=== PATIENT | male | born 1960 | race Caucasian/White ===

== ENCOUNTER 2023-02-24 17:48 | Inpatient (IN) ==
--- NOTE | 2023-02-24 18:55 | Emergency Department Note ---
Impression & Plan Acute hypotension, Fever, Malaise, Sepsis ED Provider Note INFORMANT: Patient and ED PROVIDER(S): Paulo Mosley MD CHIEF COMPLAINT: Illness PLAN: Disposition: Admitted Condition: Good Outpatient prescription management: none Referral: None MEDICAL DECISION MAKING: Patient presented because of illness. He was hypotensive. Sepsis work-up was initiated. The patient was aggressively hydrated. His hypotension resolved. Patient CBC and chemistry panel was unremarkable except for mild thrombocytopenia. Lyme testing as well as anaplasmosis testing by smear was n egative. I did have concerns that this may be tickborne related even though the initial smear is negative. DNA of reference testing sent. He did have blood cultures performed. Patient was treated with doxycycline and Rocephin empirically. Sepsis is also a possibility and he was treated with the appropriate fluid volume based upon his ideal body weight. I discussed further management in the hospital. Patient was in agreement. Consultation was made with Dr. Damon Wilson, [facility]. Patient was evaluated in the ER admitted for further management. Discussed with technical manager chemical plant After review of the information above and other included data, I feel the patient requires admission. Triage Nursing notes reviewed and agree them. Vital Signs: reviewed and remarkable for hypotension Prior /Outside records reviewed: none Differential diagnosis: Sepsis, UTI, pneumonia, metabolic, electrolyte abnormalities, cardiac sources, intracerebral event, toxicologic, neurologic, as well as other pathologies. Diagnostics, as interpreted by me: ECG: Twelve-lead ECG reveals a left anterior fascicular block and normal sinus rhythm at [address] elevation or depression. No PACs or PVCs. Cardiac Monitoring: Cardiac monitoring ordered by me: The patient was placed on continuous cardiac monitoring and observed. It revealed a normal sinus rhythm at 68 beats per minute without ectopy or evidence of dysrhythmia. Medical decision rules: none Imaging studies: Chest x-ray. Findings: A chest x-ray was performed and revealed no pneumothorax, effusion, infiltrate, pulmonary edema, free air under the diaphragm, or wide mediastinum. Impression: No acute disease. HPI: The patient is a 62 year old male who presents to the Emergency Room with complaints of illness. This started last night and is worsening. The patient also notes the following associated symptoms, chills, fevers, cough, sweats, near syncope. The patient has tylenol relieving factors. Current pain is rated as 0/10. No travel or bites. No sick contacts. Pt denies LOC, headache, , visual changes, neck pain, chest pain, breathing difficulties, nausea, vomiting, abdominal pain, back pain, melena, hematochezia, urinary symptoms, numbness, lymphadenopathy, rash, or other complaints. PAST MEDICAL HISTORY: See Below, seasonal allergies, high cholesterol PAST SURGICAL HISTORY: See Below, appendix SOCIAL HISTORY: See Below, HOME MEDICATIONS: See Below ALLERGIES: See Below VITALS: See Below PHYSICAL EXAMINATION: GENERAL: Awake, tired-appearing, in no distress HENT: Normocephalic, atraumatic. Oropharynx unremarkable. EYES: Normal conjunctiva. Sclera non-icteric. NECK: Inspection normal. Non-tender. Supple. No nuchal rigidity. FROM. No masses. RESPIRATORY: Clear to auscultation. No wheezes. No rales. Normal respiratory effort. CARDIAC: Normal rate. Normal rhythm. No murmurs. No rubs. Extremities warm and well perfused. Pulses equal. No JVD. GI: Soft, non-distended. No tenderness to palpation. No rebound or guarding. No masses. RECTAL: Deferred. MUSCULOSKELETAL: Atraumatic. Chest examination reveals no tenderness. The back is symmetrical on inspection without obvious abnormality. There is no CVA tenderness to palpation. No joint edema. LOWER EXTREMITIES: Calves are equal size bilaterally and non-tender. No edema. No discoloration. NEURO: Normal sensorium. No sensory or motor deficits noted. SKIN: No rash or jaundice noted. Past Med/Surg History Social History Smoking Status: Never smoker Hx Substance Use: No Preferred Language: Moh[place] Beliefs That Will Affect Care: None Current Living Situation: Spouse Other Information That Helps Us Care for You: No Feels Safe at Home: Yes Safety Concerns: Feels Safe At This Time Allergies Allergies Allergy/AdvReac Type Severity Reaction Status Date / Time No Known Allergies Allergy Unverified 02/24/23 23:30 Home Meds Home Medications Medication Instructions Recorded Confirmed fexofenadine 180 mg tablet 180 mg PO DAILY 08/27/22 02/24/23 levothyroxine 175 mcg tablet 175 mcg PO DAILY 08/27/22 02/24/23 acetaminophen 325 mg tablet 650 mg PO QID PRN Pain 02/24/23 02/24/23 (Tylenol) albuterol sulfate 90 mcg/actuation 2 puff inhalation QID PRN 02/24/23 02/24/23 aerosol inhaler Shortness Of Breath Or Wheezing atorvastatin 20 mg tablet 20 mg PO QAM 02/24/23 02/24/23 cyanocobalamin (vitamin B-12) 1,000 mcg PO DAILY 02/24/23 02/24/23 1,000 mcg tablet (Vitamin B-12) ipratropium bromide 0.02 % 0 mg inhalation BID PRN allergies 02/24/23 02/24/23 solution for inhalation Results & Data (ED) Vital Signs Vital Signs - 24 hr 02/25/23 03:12 02/25/23 03:13 02/25/23 05:00 Temperature 38.7 C H 37.2 C Temperature Source Oral Oral Pulse Rate Pulse Rate [Finger] 94 H Pulse Rhythm [Finger] Pulse Strength [Finger] Respiratory Rate 18 Respiratory Effort / Characteristics Respiratory Depth Respiratory Pattern Blood Pressure [Right Arm] 130/84 Blood Pressure Mean [Right Arm] 99 Blood Pressure Position [Right Arm] Pulse Oximetry 95 Oxygen Delivery Method Room Air EWS Level of Consciousness - Last Result Spontaneously Alert EWS Temperature - Last Result 38.7 EWS Respiratory Rate - Last Result 18 EWS Oxygen Saturation - Last Result 95 EWS Oxygen in Use - Last Result No EWS Lactate - Last Result 1.1 EWS Score 3 EWS Clinical Risk Moderate Risk 02/25/23 05:16 02/25/23 07:47 02/25/23 07:50 Temperature 37.4 C Temperature Source Oral Pulse Rate Pulse Rate [Finger] 82 Pulse Rhythm [Finger] Regular Pulse Strength [Finger] Normal Respiratory Rate 18 Respiratory Effort / Characteristics Non-Labored Spontaneous Respiratory Depth Normal Respiratory Pattern Regular Blood Pressure [Right Arm] 130/78 Blood Pressure Mean [Right Arm] 95 Blood Pressure Position [Right Arm] Lying Pulse Oximetry 94 Oxygen Delivery Method Room Air EWS Level of Consciousness - Last Result Spontaneously Alert Spontaneously Alert EWS Temperature - Last Result 37.2 37.4 EWS Respiratory Rate - Last Result 18 18 EWS Oxygen Saturation - Last Result 95 94 EWS Oxygen in Use - Last Result No No EWS Lactate - Last Result 1.1 1.1 EWS Score 2 1 EWS Clinical Risk Low Risk Low Risk 02/25/23 09:14 02/25/23 12:54 06/24/23 14:36 Temperature 37.7 C H 37.4 C Temperature Source Oral Oral Pulse Rate 79 Pulse Rate [Finger] 83 82 Pulse Rhythm [Finger] Regular Pulse Strength [Finger] Normal Respiratory Rate 18 17 Respiratory Effort / Characteristics Non-Labored Spontaneous Non-Labored Respiratory Depth Normal Normal Respiratory Pattern Regular Blood Pressure [Right Arm] 135/80 138/79 Blood Pressure Mean [Right Arm] 98 98 Blood Pressure Position [Right Arm] Lying Pulse Oximetry 97 94 Oxygen Delivery Method Room Air Room Air EWS Level of Consciousness - Last Result EWS Temperature - Last Result EWS Respiratory Rate - Last Result EWS Oxygen Saturation - Last Result EWS Oxygen in Use - Last Result EWS Lactate - Last Result EWS Score EWS Clinical Risk Laboratory Data 02/25/23 06:01 02/25/23 06:01 Lab Results 02/24/23 02/24/23 02/24/23 Range/Units 18:20 18:20 18:20 WBC 7.10 (4.8-10.8) K/ul RBC 4.98 (4.70-6.10) M/uL Hgb 15.5 (14.0-18.0) g/dl Hct 44.2 (42.0-52.0) % MCV 88.8 (80.0-100.0) fL MCH 31.1 (25.0-34.0) pg MCHC 35.1 (32.0-36.0) g/dL RDW Std Deviation 44.6 (36.4-46.3) fL RDW Coeff of Xin 13.7 (11.5-14.5) % Plt Count 129 L (130-400) K/uL MPV 10.2 (9.4-12.4) fL Immature Gran % (Auto) 0.4 % Neut % (Auto) 85.1 % Lymph % (Auto) 11.8 % [place] % (Auto) 2.3 % Eos % (Auto) 0.0 % Baso % (Auto) 0.4 % Neut # (Auto) 6.04 (1.40-6.50) K/uL Lymph # (Auto) 0.84 L (1.2-3.4) K/uL [place] # (Auto) 0.16 (0.11-0.59) K/uL Eos # (Auto) 0.00 (0-0.50) K/uL Baso # (Auto) 0.03 (0-0.2) K/uL Immature Gran # (Auto) 0.03 (0.01-0.20) K/uL Platelet Estimate (Normal) Sodium 135 L (136-145) mmol/L Potassium 3.7 (3.5-5.1) mmol/L Chloride 102 (98-107) mmol/L Carbon Dioxide 23 (21-32) mmol/L Anion Gap 10 (3-11) BUN 23 (6-23) mg/dl Creatinine 1.15 (0.6-1.4) mg/dl Est Cr Clr Drug Dosing 88.7 ml/min Est GFR ( Amer) 78.6 ml/min Est GFR (Non-Af Amer) 67.8 ml/min BUN/Creatinine Ratio 20.0 (10-20) Glucose 139 H (70-99(Fasting)) mg/dl Estimat Average Glucose mg/dl Hemoglobin A1c (4.5-5.6) % Lactate (0.4-2.0) mmol/L Calcium 8.9 (8.6-10.3) mg/dl Magnesium 1.7 (1.7-2.4) mg/dl Total Bilirubin 0.7 (0.2-1.0) mg/dl Direct Bilirubin 0.1 (0-0.2) mg/dl AST 20 (13-39) U/L ALT 17 (7-52) U/L Alkaline Phosphatase 43 (34-104) U/L Troponin I High Sens 19.0 (0-20) pg/ml Total Protein 6.9 (6.0-8.3) gm/dl Albumin 3.9 (3.4-5.0) gm/dl Procalcitonin 0.36 (0-0.5) ng/ml Urine Color Urine Appearance (Clear) Urine pH (4.5-7.5) Ur Specific [place] (1.000-1.030) Urine Protein (Negative) Urine Glucose (UA) (Negative) Urine Ketones (Negative) Urine Blood (Negative) Urine Nitrite (Negative) Urine Bilirubin (Negative) Urine Urobilinogen (Negative) Ur Leukocyte Esterase (Negative) Adenovirus (PCR) (NotDetected) Anaplasma Smear Babesia Smear B. pertussis DNA (PCR) (NotDetected) B.parapertussis DNA PCR (NotDetected) Lyme Disease IgG Ab Negative (Negative) Lyme Disease IgM Ab Negative (Negative) C. pneumoniae DNA (PCR) (NotDetected) Coronavirus OC43 (PCR) (NotDetected) Coronavirus HKU1 (PCR) (NotDetected) Coronavirus 229E (PCR) (NotDetected) SARS-CoV-2 (PCR) (NotDetected) Coronavirus NL63 (PCR) (NotDetected) Human Metapneumovir PCR (NotDetected) Influenza Type A (PCR) (NotDetected) Influenza Type B (PCR) (NotDetected) M. pneumoniae (PCR) (NotDetected) Parainfluenza 1 (PCR) (NotDetected) Parainfluenza 2 (PCR) (NotDetected) Parainfluenza 3 (PCR) (NotDetected) Parainfluenza 4 (PCR) (NotDetected) RSV (PCR) (NotDetected) Entero/Rhino (PCR) (NotDetected) 02/24/23 02/24/23 02/24/23 Range/Units 18:20 18:20 19:04 WBC (4.8-10.8) K/ul RBC (4.70-6.10) M/uL Hgb (14.0-18.0) g/dl Hct (42.0-52.0) % MCV (80.0-100.0) fL MCH (25.0-34.0) pg MCHC (32.0-36.0) g/dL RDW Std Deviation (36.4-46.3) fL RDW Coeff of Xin (11.5-14.5) % Plt Count (130-400) K/uL MPV (9.4-12.4) fL Immature Gran % (Auto) % Neut % (Auto) % Lymph % (Auto) % [place] % (Auto) % Eos % (Auto) % Baso % (Auto) % Neut # (Auto) (1.40-6.50) K/uL Lymph # (Auto) (1.2-3.4) K/uL [place] # (Auto) (0.11-0.59) K/uL Eos # (Auto) (0-0.50) K/uL Baso # (Auto) (0-0.2) K/uL Immature Gran # (Auto) (0.01-0.20) K/uL Platelet Estimate (Normal) Sodium (136-145) mmol/L Potassium (3.5-5.1) mmol/L Chloride (98-107) mmol/L Carbon Dioxide (21-32) mmol/L Anion Gap (3-11) BUN (6-23) mg/dl Creatinine (0.6-1.4) mg/dl Est Cr Clr Drug Dosing ml/min Est GFR ( Amer) ml/min Est GFR (Non-Af Amer) ml/min BUN/Creatinine Ratio (10-20) Glucose (70-99(Fasting)) mg/dl Estimat Average Glucose 128 mg/dl Hemoglobin A1c 6.1 H (4.5-5.6) % Lactate (0.4-2.0) mmol/L Calcium (8.6-10.3) mg/dl Magnesium (1.7-2.4) mg/dl Total Bilirubin (0.2-1.0) mg/dl Direct Bilirubin (0-0.2) mg/dl AST (13-39) U/L ALT (7-52) U/L Alkaline Phosphatase (34-104) U/L Troponin I High Sens (0-20) pg/ml Total Protein (6.0-8.3) gm/dl Albumin (3.4-5.0) gm/dl Procalcitonin (0-0.5) ng/ml Urine Color Urine Appearance (Clear) Urine pH (4.5-7.5) Ur Specific [place] (1.000-1.030) Urine Protein (Negative) Urine Glucose (UA) (Negative) Urine Ketones (Negative) Urine Blood (Negative) Urine Nitrite (Negative) Urine Bilirubin (Negative) Urine Urobilinogen (Negative) Ur Leukocyte Esterase (Negative) Adenovirus (PCR) Not Detected (NotDetected) Anaplasma Smear See Comment Babesia Smear See Comment B. pertussis DNA (PCR) Not Detected (NotDetected) B.parapertussis DNA PCR Not Detected (NotDetected) Lyme Disease IgG Ab (Negative) Lyme Disease IgM Ab (Negative) C. pneumoniae DNA (PCR) Not Detected (NotDetected) Coronavirus OC43 (PCR) Not Detected (NotDetected) Coronavirus HKU1 (PCR) Not Detected (NotDetected) Coronavirus 229E (PCR) Not Detected (NotDetected) SARS-CoV-2 (PCR) Not Detected (NotDetected) Coronavirus NL63 (PCR) Not Detected (NotDetected) Human Metapneumovir PCR Not Detected (NotDetected) Influenza Type A (PCR) Not Detected (NotDetected) Influenza Type B (PCR) Not Detected (NotDetected) M. pneumoniae (PCR) Not Detected (NotDetected) Parainfluenza 1 (PCR) Not Detected (NotDetected) Parainfluenza 2 (PCR) Not Detected (NotDetected) Parainfluenza 3 (PCR) Not Detected (NotDetected) Parainfluenza 4 (PCR) Not Detected (NotDetected) RSV (PCR) Not Detected (NotDetected) Entero/Rhino (PCR) Not Detected (NotDetected) 02/24/23 02/24/23 02/25/23 Range/Units 19:11 22:00 06:01 WBC 5.32 (4.8-10.8) K/ul RBC 4.37 L (4.70-6.10) M/uL Hgb 13.6 L (14.0-18.0) g/dl Hct 39.4 L (42.0-52.0) % MCV 90.2 (80.0-100.0) fL MCH 31.1 (25.0-34.0) pg MCHC 34.5 (32.0-36.0) g/dL RDW Std Deviation 46.0 (36.4-46.3) fL RDW Coeff of Xin 13.8 (11.5-14.5) % Plt Count 93 L (130-400) K/uL MPV 10.1 (9.4-12.4) fL Immature Gran % (Auto) 0.6 % Neut % (Auto) 71.5 % Lymph % (Auto) 23.7 % [place] % (Auto) 3.8 % Eos % (Auto) 0.0 % Baso % (Auto) 0.4 % Neut # (Auto) 3.81 (1.40-6.50) K/uL Lymph # (Auto) 1.26 (1.2-3.4) K/uL [place] # (Auto) 0.20 (0.11-0.59) K/uL Eos # (Auto) 0.00 (0-0.50) K/uL Baso # (Auto) 0.02 (0-0.2) K/uL Immature Gran # (Auto) 0.03 (0.01-0.20) K/uL Platelet Estimate Decreased L (Normal) Sodium (136-145) mmol/L Potassium (3.5-5.1) mmol/L Chloride (98-107) mmol/L Carbon Dioxide (21-32) mmol/L Anion Gap (3-11) BUN (6-23) mg/dl Creatinine (0.6-1.4) mg/dl Est Cr Clr Drug Dosing ml/min Est GFR ( Amer) ml/min Est GFR (Non-Af Amer) ml/min BUN/Creatinine Ratio (10-20) Glucose (70-99(Fasting)) mg/dl Estimat Average Glucose mg/dl Hemoglobin A1c (4.5-5.6) % Lactate 1.1 (0.4-2.0) mmol/L Calcium (8.6-10.3) mg/dl Magnesium (1.7-2.4) mg/dl Total Bilirubin (0.2-1.0) mg/dl Direct Bilirubin (0-0.2) mg/dl AST (13-39) U/L ALT (7-52) U/L Alkaline Phosphatase (34-104) U/L Troponin I High Sens (0-20) pg/ml Total Protein (6.0-8.3) gm/dl Albumin (3.4-5.0) gm/dl Procalcitonin (0-0.5) ng/ml Urine Color Yellow Urine Appearance Clear (Clear) Urine pH 7.0 (4.5-7.5) Ur Specific [place] 1.020 (1.000-1.030) Urine Protein Negative (Negative) Urine Glucose (UA) Negative (Negative) Urine Ketones Negative (Negative) Urine Blood Negative (Negative) Urine Nitrite Negative (Negative) Urine Bilirubin Negative (Negative) Urine Urobilinogen Negative (Negative) Ur Leukocyte Esterase Negative (Negative) Adenovirus (PCR) (NotDetected) Anaplasma Smear Babesia Smear B. pertussis DNA (PCR) (NotDetected) B.parapertussis DNA PCR (NotDetected) Lyme Disease IgG Ab (Negative) Lyme Disease IgM Ab (Negative) C. pneumoniae DNA (PCR) (NotDetected) Coronavirus OC43 (PCR) (NotDetected) Coronavirus HKU1 (PCR) (NotDetected) Coronavirus 229E (PCR) (NotDetected) SARS-CoV-2 (PCR) (NotDetected) Coronavirus NL63 (PCR) (NotDetected) Human Metapneumovir PCR (NotDetected) Influenza Type A (PCR) (NotDetected) Influenza Type B (PCR) (NotDetected) M. pneumoniae (PCR) (NotDetected) Parainfluenza 1 (PCR) (NotDetected) Parainfluenza 2 (PCR) (NotDetected) Parainfluenza 3 (PCR) (NotDetected) Parainfluenza 4 (PCR) (NotDetected) RSV (PCR) (NotDetected) Entero/Rhino (PCR) (NotDetected) 02/25/23 Range/Units 06:01 WBC (4.8-10.8) K/ul RBC (4.70-6.10) M/uL Hgb (14.0-18.0) g/dl Hct (42.0-52.0) % MCV (80.0-100.0) fL MCH (25.0-34.0) pg MCHC (32.0-36.0) g/dL RDW Std Deviation (36.4-46.3) fL RDW Coeff of Xin (11.5-14.5) % Plt Count (130-400) K/uL MPV (9.4-12.4) fL Immature Gran % (Auto) % Neut % (Auto) % Lymph % (Auto) % [place] % (Auto) % Eos % (Auto) % Baso % (Auto) % Neut # (Auto) (1.40-6.50) K/uL Lymph # (Auto) (1.2-3.4) K/uL [place] # (Auto) (0.11-0.59) K/uL Eos # (Auto) (0-0.50) K/uL Baso # (Auto) (0-0.2) K/uL Immature Gran # (Auto) (0.01-0.20) K/uL Platelet Estimate (Normal) Sodium 135 L (136-145) mmol/L Potassium 3.6 (3.5-5.1) mmol/L Chloride 105 (98-107) mmol/L Carbon Dioxide 23 (21-32) mmol/L Anion Gap 7 (3-11) BUN 21 (6-23) mg/dl Creatinine 1.10 (0.6-1.4) mg/dl Est Cr Clr Drug Dosing 93.4 ml/min Est GFR ( Amer) 82.9 ml/min Est GFR (Non-Af Amer) 71.6 ml/min BUN/Creatinine Ratio 19.1 (10-20) Glucose 112 H (70-99(Fasting)) mg/dl Estimat Average Glucose mg/dl Hemoglobin A1c (4.5-5.6) % Lactate (0.4-2.0) mmol/L Calcium 8.1 L (8.6-10.3) mg/dl Magnesium (1.7-2.4) mg/dl Total Bilirubin (0.2-1.0) mg/dl Direct Bilirubin (0-0.2) mg/dl AST (13-39) U/L ALT (7-52) U/L Alkaline Phosphatase (34-104) U/L Troponin I High Sens (0-20) pg/ml Total Protein (6.0-8.3) gm/dl Albumin (3.4-5.0) gm/dl Procalcitonin (0-0.5) ng/ml Urine Color Urine Appearance (Clear) Urine pH (4.5-7.5) Ur Specific [place] (1.000-1.030) Urine Protein (Negative) Urine Glucose (UA) (Negative) Urine Ketones (Negative) Urine Blood (Negative) Urine Nitrite (Negative) Urine Bilirubin (Negative) Urine Urobilinogen (Negative) Ur Leukocyte Esterase (Negative) Adenovirus (PCR) (NotDetected) Anaplasma Smear Babesia Smear B. pertussis DNA (PCR) (NotDetected) B.parapertussis DNA PCR (NotDetected) Lyme Disease IgG Ab (Negative) Lyme Disease IgM Ab (Negative) C. pneumoniae DNA (PCR) (NotDetected) Coronavirus OC43 (PCR) (NotDetected) Coronavirus HKU1 (PCR) (NotDetected) Coronavirus 229E (PCR) (NotDetected) SARS-CoV-2 (PCR) (NotDetected) Coronavirus NL63 (PCR) (NotDetected) Human Metapneumovir PCR (NotDetected) Influenza Type A (PCR) (NotDetected) Influenza Type B (PCR) (NotDetected) M. pneumoniae (PCR) (NotDetected) Parainfluenza 1 (PCR) (NotDetected) Parainfluenza 2 (PCR) (NotDetected) Parainfluenza 3 (PCR) (NotDetected) Parainfluenza 4 (PCR) (NotDetected) RSV (PCR) (NotDetected) Entero/Rhino (PCR) (NotDetected) Administered Medications Acetaminophen (Acetaminophen 325 Mg Tab) 650 mg PO Q4H PRN PRN Reason: Pain or Fever Stop: 03/27/23 01:40 Last Admin: 02/25/23 14:40 Dose: 650 mg Documented By: Admin: 02/25/23 01:54 Dose: 650 mg Documented By: MONO Atorvastatin Calcium (Atorvastatin 20 Mg Tab) 20 mg PO QAM [facility] Stop: 03/27/23 08:59 Last Admin: 02/25/23 08:07 Dose: 20 mg Documented By: TRACEY Cyanocobalamin (Cyanocobalamin (B-12) 500 Mcg Tablet) 1,000 mcg PO DAILY MARGARITO Stop: 03/27/23 08:59 Last Admin: 02/25/23 08:07 Dose: 1,000 mcg Documented By: TRACEY Doxycycline Hyclate (Doxycycline Hyclate 100 Mg Cap) 100 mg PO BID [facility] Stop: 03/07/23 08:59 Last Admin: 02/25/23 20:19 Dose: 100 mg Documented By: Admin: 02/25/23 12:01 Dose: 100 mg Documented By: TRACEY Fexofenadine HCl (Fexofenadine Hcl 180 Mg Tab) 180 mg PO DAILY [facility] Stop: 03/27/23 08:59 Last Admin: 02/25/23 08:07 Dose: 180 mg Documented By: TRACEY Guaifenesin (Guaifenesin 600 Mg Tabcr) 600 mg PO Q12 [facility]ARG[facility]O Stop: 03/27/23 20:59 Last Admin: 02/25/23 20:19 Dose: 600 mg Documented By: ELLIE Ceftriaxone Sodium 2,000 mg/ (Dextrose) 70 mls @ 100 mls/hr IV Q24H MARGARITO; Protocol Stop: 02/27/23 20:59 Last Infusion: 02/25/23 20:55 Dose: 0 mls/hr Documented By: Admin: 02/25/23 20:15 Dose: 100 mls/hr Documented By: ELLIE Levothyroxine Sodium (Levothyroxine Sodium 175 Mcg Tablet) 175 mcg PO DAILYBB MARGARITO Stop: 03/27/23 06:29 Last Admin: 02/25/23 05:50 Dose: 175 mcg Documented By: MONO Discontinued Medications Guaifenesin (Guaifenesin 600 Mg Tabcr) 600 mg PO NOW STA Stop: 02/24/23 23:59 Last Admin: 02/25/23 00:32 Dose: 600 mg Documented By: AQUILES Sodium Chloride (Nss 1000ml) 1,000 mls @ 999 mls/hr IV .Q1H1M MARGARITO Stop: 02/24/23 21:00 Last Infusion: 02/24/23 21:01 Dose: 0 mls/hr Documented By: Admin: 02/24/23 20:09 Dose: 999 mls/hr Documented By: Infusion: 02/24/23 20:09 Dose: 0 mls/hr Documented By: Admin: 02/24/23 19:03 Dose: 999 mls/hr Documented By: DENISA Sodium Chloride (Nss 1000ml) 500 mls @ 999 mls/hr IV .Q31M ONE Stop: 02/24/23 20:38 Last Infusion: 02/24/23 21:01 Dose: 0 mls/hr Documented By: Admin: 02/24/23 20:10 Dose: 999 mls/hr Documented By: AQUILES Doxycycline Hyclate 100 mg/ (Dextrose) 110 mls @ 50 mls/hr IV NOW STA Stop: 02/25/23 00:38 Last Infusion: 02/25/23 01:34 Dose: 0 mls/hr Documented By: Admin: 02/24/23 23:31 Dose: 50 mls/hr Documented By: AQUILES Ceftriaxone Sodium (Rocephin) 2,000 mg in 70 mls @ 140 mls/hr IV NOW STA Stop: 02/24/23 22:56 Last Infusion: 02/24/23 23:03 Dose: 0 mls/hr Documented By: Admin: 02/24/23 22:36 Dose: 140 mls/hr Documented By: AQUILES Magnesium Sulfate/Dextrose (Magnesium Sulfate / D5w) 1 gm in 100 mls @ 50 mls/hr IV 0015 ONE Stop: 02/25/23 02:14 Last Infusion: 02/25/23 04:42 Dose: 0 mls/hr Documented By: Admin: 02/25/23 01:47 Dose: 50 mls/hr Documented By: MONO Lactated Ringer's (Lr) 1,000 mls @ 50 mls/hr IV .Q20H ONE Stop: 02/25/23 20:02 Last Infusion: 02/25/23 20:12 Dose: 0 mls/hr Documented By: Admin: 02/25/23 01:47 Dose: 50 mls/hr Documented By: MONO Discharge Plan Visit Data Chief Complaint: Illness Stated Complaint: WEAK,SWEAT,FEVER,FATIGUE ED Provider: Paulo Mosley Discharge Problem: Acute hypotension, Fever, Malaise, Sepsis Patient Disposition: Admitted As Inpatient Discharge Instructions Interventions: ED Discharge Assessment Last Done: 02/25/23 01:06
[2023-02-24] MEDS: SODIUM CHLORIDE 0.9% 1000ML 1,000 ML IV SCH ×2 (19:03→20:09)
--- NOTE | 2023-02-24 19:32 | XRay Report ---
SINGLE VIEW CHEST CLINICAL HISTORY: Sepsis. FINDINGS: An AP, portable, upright chest radiograph is obtained. No prior studies are available for c omparison at the time of dictation. The heart is mildly enlarged. The pulmonary vasculature is noncon gested. There is bibasilar atelectasis. The lungs and pleural spaces are otherwise clear. No pneumoth orax is seen. The bony thorax is grossly intact. IMPRESSION: No active disease in the chest. ACT 112: Negative or not required by law. Electronically signed by: Grzegorz Salcedo M.D. 02/24/2023 7:31 PM
[2023-02-24 19:48] LABS: Basophils # (auto) 0.03 K/uL (0-0.2); Basophils % (auto) 0.4 %; Hematocrit (blood only) 44.2 % (42.0-52.0); Hemoglobin 15.5 g/dl (14.0-18.0); Immature Granulocytes # (auto) 0.03 K/uL (0.01-0.20); Immature Granulocytes % (auto) 0.4 %; Lymphocytes # (auto) 0.84 K/uL (1.2-3.4); Lymphocytes % (auto) 11.8 %; Mean Corpuscular Hemoglobin 31.1 pg (25.0-34.0); Mean Corpuscular Hgb Conc 35.1 g/dL (32.0-36.0); Mean Corpuscular Volume 88.8 fL (80.0-100.0); Mean Platelet Volume 10.2 fL (9.4-12.4); Monocytes # (auto) 0.16 K/uL (0.11-0.59); Monocytes % (auto) 2.3 %; Neutrophils # (auto) 6.04 K/uL (1.40-6.50); Neutrophils % (auto) 85.1 %; Platelet Count 129 K/uL (130-400); RDW Coefficient of Variation 13.7 % (11.5-14.5); RDW Standard Deviation 44.6 fL (36.4-46.3); Red Blood Count 4.98 M/uL (4.70-6.10)
[2023-02-24 19:59] LABS: Albumin Level 3.9 gm/dl (3.4-5.0); Bilirubin Direct 0.1 mg/dl (0-0.2); Bilirubin,Total 0.7 mg/dl (0.2-1.0); Calcium 8.9 mg/dl (8.6-10.3); Creatinine Clr Calc Pharmacy 88.7 ml/min; Est GFR (African American) 78.6 ml/min; Est GFR (Non-African American) 67.8 ml/min; Magnesium 1.7 mg/dl (1.7-2.4); Potassium 3.7 mmol/L (3.5-5.1); Total Protein 6.9 gm/dl (6.0-8.3)
[2023-02-24] MEDS ORDERED: SODIUM CHLORIDE 0.9% 1000ML 500 ML IV ONE (20:08)
[2023-02-24 20:27] LABS: Procalcitonin 0.36 ng/ml (0-0.5)
[2023-02-24 20:33] LABS: Lyme Ab IgG w/WB Rflx Negative (Negative); Lyme Ab IgM w/WB Rflx Negative (Negative)
[2023-02-24 20:43] LABS: Adenovirus PCR Not Detected (NotDetected); Bordetella parapertussis PCR Not Detected (NotDetected); Bordetella pertussis PCR Not Detected (NotDetected); Chlamydia pneumoniae PCR Not Detected (NotDetected); Coronavirus 229E PCR Not Detected (NotDetected); Coronavirus CoV-2 (COVID19)PCR Not Detected (NotDetected); Coronavirus HKU1 PCR Not Detected (NotDetected); Coronavirus NL63 PCR Not Detected (NotDetected); Coronavirus OC43PCR Not Detected (NotDetected); Human Metapneumovirus PCR Not Detected (NotDetected); Influenza A PCR Not Detected (NotDetected); Influenza B PCR Not Detected (NotDetected); Mycoplasma pneumoniae PCR Not Detected (NotDetected); Parainfluenza Virus 1 PCR Not Detected (NotDetected); Parainfluenza Virus 2 PCR Not Detected (NotDetected); Parainfluenza Virus 3 PCR Not Detected (NotDetected); Parainfluenza Virus 4 PCR Not Detected (NotDetected); Respiratory Syncytial VirusPCR Not Detected (NotDetected); Rhinovirus/Enterovirus PCR Not Detected (NotDetected)
[2023-02-24] MEDS ORDERED: cefTRIAXone SODIUM 2,000 MG/70 ML BAG IV STA (22:27)
[2023-02-24] MEDS ORDERED: DOXYCYCLINE HYCLATE 100 MG in DEXTROSE 5% 100 ML IV STA (22:27)
[2023-02-24 22:43] LABS: Appearance Urine Clear (Clear); Bilirubin Urine Negative (Negative); Blood Urine Negative (Negative); Color Urine Yellow; Glucose Urine UA Negative (Negative); Ketones Urine Negative (Negative); Leukocyte Esterase Urine Negative (Negative); Nitrite Urine Negative (Negative); Protein Urine Negative (Negative); Urobilinogen Urine Negative (Negative)
--- NOTE | 2023-02-24 23:31 | CT Scan Report ---
Exam(s): CT HEAD Without Contrast EXAM: CT Head Without Intravenous Contrast CLINICAL HISTORY: Reason for exam: wick, thrombocytopenia. TECHNIQUE: Axial computed tomography images of the head/brain without intravenous contrast. CTDI is 36.53 mGy and DLP is 780.34 mGy-cm. Automated exposure control was utilized for the study. A dose lowering technique was utilized adhering to the principles of ALARA. COMPARISON: No relevant prior studies available. FINDINGS: Brain: The cerebral and cerebellar sulci are mildly prominent consistent with mild brain atrophy. There are a few areas of decreased attenuation in the deep cerebral white matter consistent with mild small vessel ischemic/degenerative changes. No hemorrhage. Ventricles: Unremarkable. No ventriculomegaly. Bones/joints: Unremarkable. No acute fracture. Soft tissues: Unremarkable. Vasculature: Atherosclerotic disease. Sinuses: Unremarkable as visualized. No acute sinusitis. Mastoid air cells: Unremarkable as visualized. No mastoid effusion. IMPRESSION: No acute findings in the head/brain. Electronically signed by: Iker Hernandez MD 02/24/23 23:29 PM
[2023-02-24] MEDS ORDERED: guaiFENesin 600 MG TABCR PO STA (23:58)
--- NOTE | 2023-02-25 | History & Physical Report ---
Date of Service February 25, 2023 Assessment & Plan (1) Acute hypotension: Plan: Secondary to decreased p.o. intake due to viral infection Rule out tickborne infection No overt sepsis for now Thrombocytopenia secondary to illness. hyperlipidemia, on statin Rx hypothyroidism, euthyroid as of recent outpatient TSH from 2 months ago asthma/centrilobular emphysema, lung status at baseline Hodgkin's lymphoma status post chemoradiation, in remission Hyperglycemia rule out DM OBS Medical telemetry given transient hypotension Supportive management for viral illness for now Follow tick borne infection blood work Check hemoglobin A1c DVT prophylaxis. SCDs Re: Thrombocytopenia Full code Patient requesting updates providers. Ms. Tiffany Licona, contact #[phone]. Text document was generated using [employer] voice recognition software. It may contain grammatical or spelling errors. Kindly contact undersigned for clarification of any documentation item in question. History of Present Illness Chief Complaint: fever, malaise Primary Care Provider: Macario Hood MD History obtained from patient, family, and records. Medical history significant for hyperlipidemia, hypothyroidism, asthma/centrilobular emphysema, Hodgkin's lymphoma status post chemoradiation, GERD. Last night, patient noted dry cough symptoms associated with fever, chills, sweats, fever to touch as per . Dull headache symptoms. Not sure about recent tick bites. Ticks where patient lives. Patient has received COVID-19 vaccination. Patient denies chest pain, SOB, abdominal pain. Poor appetite. Patient brought to ER for evaluation. SBP 90s at one-point during ER stay. IV doxycycline administered at the ER. Medical History as above Surgical History : Appendectomy Family History : Heart disease, depression, cirrhosis, lymphoma Personal/Social history : Non-smoker, occasional EtOH intake, currently unemployed Allergies Allergy/AdvReac Type Severity Reaction Status Date / Time No Known Allergies Allergy Unverified 02/24/23 23:30 Home Medications Medication Instructions Recorded Confirmed Type fexofenadine 180 mg tablet 180 mg PO DAILY 08/27/22 02/24/23 History levothyroxine 175 mcg tablet 175 mcg PO DAILY 08/27/22 02/24/23 History acetaminophen 325 mg tablet 650 mg PO QID PRN Pain 02/24/23 02/24/23 History (Tylenol) albuterol sulfate 90 mcg/actuation 2 puff inhalation QID PRN 02/24/23 02/24/23 History aerosol inhaler Shortness Of Breath Or Wheezing atorvastatin 20 mg tablet 20 mg PO QAM 02/24/23 02/24/23 History cyanocobalamin (vitamin B-12) 1,000 mcg PO DAILY 02/24/23 02/24/23 History 1,000 mcg tablet (Vitamin B-12) ipratropium bromide 0.02 % 0 mg inhalation BID PRN allergies 02/24/23 02/24/23 History solution for inhalation Past Med/Surg History Social History Smoking Status: Never smoker Hx Substance Use: No Preferred Language: [place] Beliefs That Will Affect Care: None Current Living Situation: Spouse Other Information That Helps Us Care for You: No Feels Safe at Home: Yes Safety Concerns: Feels Safe At This Time Review of Systems Review of Systems: As per HPI, all other systems reviewed and negative Physical Exam Physical Exam: GENERAL: Comfortable, wane, pleasant, obese, no respiratory distress SKIN: Normal color, warm HEENT: Alopecia, [place] palpebral conjunctivae, no ptosis, dry buccal mucosa NECK : Supple, short neck, no tenderness CHEST : Decreased breath sounds, no tenderness HEART : RRR, no obvious murmurs ABDOMEN: Some distention, nontender EXTREMITIES : No LE swelling/tenderness, no other conspicuous deformities noted NEUROLOGIC : Coherent, no facial asymmetry, no other gross focality Results & Data Results & Data Vital Signs (Past 12 Hours) Vital Signs Temp Pulse Resp BP Pulse Ox O2 Del Method 02/24/23 23:00 89 02/24/23 19:08 96 Room Air 02/24/23 18:59 91 H 02/24/23 18:02 37.1 C 103 H 19 94/63 L 95 Room Air Laboratory Results Laboratory Results WBC 7.10 K/ul (4.8-10.8) 02/24/23 18:20 RBC 4.98 M/uL (4.70-6.10) 02/24/23 18:20 Hgb 15.5 g/dl (14.0-18.0) 02/24/23 18:20 Hct 44.2 % (42.0-52.0) 02/24/23 18:20 MCV 88.8 fL (80.0-100.0) 02/24/23 18:20 MCH 31.1 pg (25.0-34.0) 02/24/23 18:20 MCHC 35.1 g/dL (32.0-36.0) 02/24/23 18:20 RDW Std Deviation 44.6 fL (36.4-46.3) 02/24/23 18:20 RDW Coeff of Xin 13.7 % (11.5-14.5) 02/24/23 18:20 Plt Count 129 K/uL (130-400) L 02/24/23 18:20 MPV 10.2 fL (9.4-12.4) 02/24/23 18:20 Immature Gran % (Auto) 0.4 % 02/24/23 18:20 Neut % (Auto) 85.1 % 02/24/23 18:20 Lymph % (Auto) 11.8 % 02/24/23 18:20 [place] % (Auto) 2.3 % 02/24/23 18:20 Eos % (Auto) 0.0 % 02/24/23 18:20 Baso % (Auto) 0.4 % 02/24/23 18:20 Neut # (Auto) 6.04 K/uL (1.40-6.50) 02/24/23 18:20 Lymph # (Auto) 0.84 K/uL (1.2-3.4) L 02/24/23 18:20 [place] # (Auto) 0.16 K/uL (0.11-0.59) 02/24/23 18:20 Eos # (Auto) 0.00 K/uL (0-0.50) 02/24/23 18:20 Baso # (Auto) 0.03 K/uL (0-0.2) 02/24/23 18:20 Immature Gran # (Auto) 0.03 K/uL (0.01-0.20) 02/24/23 18:20 Sodium 135 mmol/L (136-145) L 02/24/23 18:20 Potassium 3.7 mmol/L (3.5-5.1) 02/24/23 18:20 Chloride 102 mmol/L (98-107) 02/24/23 18:20 Carbon Dioxide 23 mmol/L (21-32) 02/24/23 18:20 Anion Gap 10 (3-11) 02/24/23 18:20 BUN 23 mg/dl (6-23) 02/24/23 18:20 Creatinine 1.15 mg/dl (0.6-1.4) 02/24/23 18:20 Est Cr Clr Drug Dosing 88.7 ml/min 02/24/23 18:20 Est GFR ( Amer) 78.6 ml/min 02/24/23 18:20 Est GFR (Non-Af Amer) 67.8 ml/min 02/24/23 18:20 BUN/Creatinine Ratio 20.0 (10-20) 02/24/23 18:20 Glucose 139 mg/dl (70-99(Fasting)) H 02/24/23 18:20 Lactate 1.1 mmol/L (0.4-2.0) 02/24/23 19:11 Calcium 8.9 mg/dl (8.6-10.3) 02/24/23 18:20 Magnesium 1.7 mg/dl (1.7-2.4) 02/24/23 18:20 Total Bilirubin 0.7 mg/dl (0.2-1.0) 02/24/23 18:20 Direct Bilirubin 0.1 mg/dl (0-0.2) 02/24/23 18:20 AST 20 U/L (13-39) 02/24/23 18:20 ALT 17 U/L (7-52) 02/24/23 18:20 Alkaline Phosphatase 43 U/L (34-104) 02/24/23 18:20 Troponin I High Sens 19.0 pg/ml (0-20) 02/24/23 18:20 Total Protein 6.9 gm/dl (6.0-8.3) 02/24/23 18:20 Albumin 3.9 gm/dl (3.4-5.0) 02/24/23 18:20 Procalcitonin 0.36 ng/ml (0-0.5) 02/24/23 18:20 Urine Color Yellow 02/24/23 22:00 Urine Appearance Clear (Clear) 02/24/23 22:00 Urine pH 7.0 (4.5-7.5) 02/24/23 22:00 Ur Specific [place] 1.020 (1.000-1.030) 02/24/23 22:00 Urine Protein Negative (Negative) 02/24/23 22:00 Urine Glucose (UA) Negative (Negative) 02/24/23 22:00 Urine Ketones Negative (Negative) 02/24/23 22:00 Urine Blood Negative (Negative) 02/24/23 22:00 Urine Nitrite Negative (Negative) 02/24/23 22:00 Urine Bilirubin Negative (Negative) 02/24/23 22:00 Urine Urobilinogen Negative (Negative) 02/24/23 22:00 Ur Leukocyte Esterase Negative (Negative) 02/24/23 22:00 Adenovirus (PCR) Not Detected (NotDetected) 02/24/23 19:04 Anaplasma Smear See Comment 02/24/23 18:20 Babesia Smear See Comment 02/24/23 18:20 B. pertussis DNA (PCR) Not Detected (NotDetected) 02/24/23 19:04 B.parapertussis DNA PCR Not Detected (NotDetected) 02/24/23 19:04 Lyme Disease IgG Ab Negative (Negative) 02/24/23 18:20 Lyme Disease IgM Ab Negative (Negative) 02/24/23 18:20 C. pneumoniae DNA (PCR) Not Detected (NotDetected) 02/24/23 19:04 Coronavirus OC43 (PCR) Not Detected (NotDetected) 02/24/23 19:04 Coronavirus HKU1 (PCR) Not Detected (NotDetected) 02/24/23 19:04 Coronavirus 229E (PCR) Not Detected (NotDetected) 02/24/23 19:04 SARS-CoV-2 (PCR) Not Detected (NotDetected) 02/24/23 19:04 Coronavirus NL63 (PCR) Not Detected (NotDetected) 02/24/23 19:04 Human Metapneumovir PCR Not Detected (NotDetected) 02/24/23 19:04 Influenza Type A (PCR) Not Detected (NotDetected) 02/24/23 19:04 Influenza Type B (PCR) Not Detected (NotDetected) 02/24/23 19:04 M. pneumoniae (PCR) Not Detected (NotDetected) 02/24/23 19:04 Parainfluenza 1 (PCR) Not Detected (NotDetected) 02/24/23 19:04 Parainfluenza 2 (PCR) Not Detected (NotDetected) 02/24/23 19:04 Parainfluenza 3 (PCR) Not Detected (NotDetected) 02/24/23 19:04 Parainfluenza 4 (PCR) Not Detected (NotDetected) 02/24/23 19:04 RSV (PCR) Not Detected (NotDetected) 02/24/23 19:04 Entero/Rhino (PCR) Not Detected (NotDetected) 02/24/23 19:04 Impressions Chest X-Ray 02/24/23 18:49 SINGLE VIEW CHEST CLINICAL HISTORY: Sepsis. FINDINGS: An AP, portable, upright chest radiograph is obtained. No prior studies are available for comparison at the time of dictation. The heart is mildly enlarged. The pulmonary vasculature is noncongested. There is bibasilar atelectasis. The lungs and pleural spaces are otherwise clear. No pneumothorax is seen. The bony thorax is grossly intact. IMPRESSION: No active disease in the chest. ACT 112: Negative or not required by law. Electronically signed by: Grzegorz Salcedo M.D. 02/24/2023 7:[address] 02/24/23 23:06 Exam(s): CT HEAD Without Contrast EXAM: CT Head Without Intravenous Contrast CLINICAL HISTORY: Reason for exam: wick, thrombocytopenia. TECHNIQUE: Axial computed tomography images of the head/brain without intravenous contrast. CTDI is 36.53 mGy and DLP is 780.34 mGy-cm. Automated exposure control was utilized for the study. A dose lowering technique was utilized adhering to the principles of ALARA. COMPARISON: No relevant prior studies available. FINDINGS: Brain: The cerebral and cerebellar sulci are mildly prominent consistent with mild brain atrophy. There are a few areas of decreased attenuation in the deep cerebral white matter consistent with mild small vessel ischemic/degenerative changes. No hemorrhage. Ventricles: Unremarkable. No ventriculomegaly. Bones/joints: Unremarkable. No acute fracture. Soft tissues: Unremarkable. Vasculature: Atherosclerotic disease. Sinuses: Unremarkable as visualized. No acute sinusitis. Mastoid air cells: Unremarkable as visualized. No mastoid effusion. IMPRESSION: No acute findings in the head/brain. Electronically signed by: Iker Hernandez MD 02/24/23 23:29 PM Diagnostic Findings EKG as per my interpretation :Rate 90, NSR, LAD, LAFB, no ischemia
[2023-02-25] MEDS ORDERED: PROMETHAZINE HCL 12.5 MG in SODIUM CHLORIDE 0.9% 50 ML IV PRN (00:03)
[2023-02-25] MEDS ORDERED: LACTATED RINGER'S 1,000 ML IV ONE (00:03)
[2023-02-25] MEDS ORDERED: BENZONATATE 100 MG CAPSULE PO PRN (00:03)
[2023-02-25] MEDS ORDERED: MAGNESIUM SULFATE / D5W 1 GM/100 ML BAG IV ONE (00:15)
[2023-02-25] MEDS: ACETAMINOPHEN 325 MG TAB PO PRN ×2 (01:54→14:40)
[2023-02-25] MEDS: LEVOTHYROXINE SODIUM 175 MCG TABLET PO SCH (05:50)
[2023-02-25 06:53] LABS: BUN Creatinine Ratio 19.1 (10-20); Calcium 8.1 mg/dl (8.6-10.3); Creatinine Clr Calc Pharmacy 93.4 ml/min; Est GFR (African American) 82.9 ml/min; Est GFR (Non-African American) 71.6 ml/min; Potassium 3.6 mmol/L (3.5-5.1)
[2023-02-25 07:24] LABS: Hematocrit (blood only) 39.4 % (42.0-52.0); Hemoglobin 13.6 g/dl (14.0-18.0); Mean Corpuscular Hemoglobin 31.1 pg (25.0-34.0); Mean Corpuscular Hgb Conc 34.5 g/dL (32.0-36.0); Mean Corpuscular Volume 90.2 fL (80.0-100.0); Mean Platelet Volume 10.1 fL (9.4-12.4); Platelet Count 93 K/uL (130-400); RDW Coefficient of Variation 13.8 % (11.5-14.5); Red Blood Count 4.37 M/uL (4.70-6.10); White Blood Count 5.32 K/ul (4.8-10.8)
[2023-02-25 08:06] LABS: Basophils # (auto) 0.02 K/uL (0-0.2); Basophils % (auto) 0.4 %; Immature Granulocytes # (auto) 0.03 K/uL (0.01-0.20); Immature Granulocytes % (auto) 0.6 %; Lymphocytes # (auto) 1.26 K/uL (1.2-3.4); Lymphocytes % (auto) 23.7 %; Monocytes % (auto) 3.8 %; Neutrophils # (auto) 3.81 K/uL (1.40-6.50); Neutrophils % (auto) 71.5 %; Platelet Estimate Decreased (Normal)
[2023-02-25] MEDS: ATORVASTATIN 20 MG TAB PO SCH (08:07)
[2023-02-25] MEDS: FEXOFENADINE HCL 180 MG TAB PO SCH (08:07)
[2023-02-25] MEDS: CYANOCOBALAMIN (B-12) 500 MCG TABLET PO SCH (08:07)
[2023-02-25 08:12] LABS: Estimated Average Glucose 128 mg/dl; Hemoglobin A1C 6.1 % (4.5-5.6)
--- NOTE | 2023-02-25 08:27 | Communication Note ---
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 Finding confirmed by pathologist. Doxycycline Rx.
[2023-02-25] MEDS: DOXYCYCLINE HYCLATE 100 MG CAP PO SCH ×2 (12:01→20:19)
--- NOTE | 2023-02-25 16:02 | Hospitalist Progress Note ---
Date of Service February 25, 2023 Assessment & Plan (1) Sepsis: Plan: -Continue IVF. No clear source of infection. -Viral screen negative -Tick borne illness screen negative. Continue doxycycline. Follow up PCR -UA negative -s/p ceftriaxone 2gm in ER. Will continue ceftriaxone for empiric treatment pending blood culture. (2) Thrombocytopenia: Plan: -Due to infection Plan DVT ppx SCDs for now Admission and Anticipated Discharge Date Admission Date: February 25, 2023 Subjective Feels better. Fever overnight No nausea/vomiting/diarrhea No headache No rash +post nasal drip and sinus congestion consistent with his history of seasonal allergies Review of Systems Review of Systems: As above Physical Exam Physical Exam: Appears stated age, no acute distress, non toxic ENMT: No frontal or maxillary tenderness to palpation Respiratory: Breathing comfortably on room air, no wheezing/rhonchi/rales Cardiovascular: regular rate and rhythm, no murmurs/rubs/gallops Gastrointestinal (Abdomen): soft, non tender, non distended Musculoskeletal: no edema, no joint swelling noted Skin: no rash Neurologic: awake, alert, answering questions appropriately, spontaneously moving extremities Results & Data Results & Data Vital Signs (Past 12 Hours) Vital Signs Temp Pulse Pulse Resp BP Pulse Ox O2 Del Method 02/25/23 14:36 37.4 C 82 17 138/79 94 Room Air 02/25/23 12:54 37.7 C H 83 18 135/80 97 Room Air 02/25/23 09:14 79 02/25/23 07:47 37.4 C 82 18 130/78 94 Room Air 02/25/23 05:00 37.2 C
--- NOTE | 2023-02-25 17:33 | Electrocardiogram Report ---
Test Reason : Blood Pressure : / mmHG Vent. Rate : 091 BPM Atrial Rate : 091 BPM P-R Int : 154 ms QRS Dur : 122 ms QT Int : 370 ms P-R-T Axes : 018 -45 023 degrees QTc Int : 455 ms Normal sinus rhythm Left anterior fascicular block Abnormal ECG No previous ECGs available Confirmed by Eleazar Pedersen ([id number]) on 02/25/2023 5:33:21 PM Referred By: REFERRED SELF Confirmed By:Eleazar Pedersen
[2023-02-25] MEDS: cefTRIAXone SODIUM 2,000 MG in DEXTROSE 5% 50 ML IV SCH (20:15)
[2023-02-25] MEDS: guaiFENesin 600 MG TABCR PO SCH (20:19)
[2023-02-26] MEDS: LEVOTHYROXINE SODIUM 175 MCG TABLET PO SCH (05:55)
[2023-02-26 07:23] LABS: BUN Creatinine Ratio 17.1 (10-20); Calcium 8.1 mg/dl (8.6-10.3); Creatinine Clr Calc Pharmacy 97.4 ml/min; Est GFR (African American) 87.7 ml/min; Est GFR (Non-African American) 75.7 ml/min; Potassium 3.9 mmol/L (3.5-5.1)
[2023-02-26 07:51] LABS: Basophils # (auto) 0.05 K/uL (0-0.2); Basophils % (auto) 0.9 %; Eosinophils # (auto) 0.06 K/uL (0-0.50); Hematocrit (blood only) 39.1 % (42.0-52.0); Hemoglobin 13.4 g/dl (14.0-18.0); Immature Granulocytes # (auto) 0.03 K/uL (0.01-0.20); Immature Granulocytes % (auto) 0.5 %; Lymphocytes # (auto) 2.46 K/uL (1.2-3.4); Lymphocytes % (auto) 42.3 %; Mean Corpuscular Hemoglobin 30.6 pg (25.0-34.0); Mean Corpuscular Hgb Conc 34.3 g/dL (32.0-36.0); Mean Corpuscular Volume 89.3 fL (80.0-100.0); Mean Platelet Volume 10.6 fL (9.4-12.4); Neutrophils # (auto) 2.52 K/uL (1.40-6.50); Neutrophils % (auto) 43.3 %; Platelet Count 72 K/uL (130-400); RDW Coefficient of Variation 13.8 % (11.5-14.5); RDW Standard Deviation 45.3 fL (36.4-46.3); Red Blood Count 4.38 M/uL (4.70-6.10); White Blood Count 5.82 K/ul (4.8-10.8)
[2023-02-26] MEDS: CYANOCOBALAMIN (B-12) 500 MCG TABLET PO SCH (08:33)
[2023-02-26] MEDS: guaiFENesin 600 MG TABCR PO SCH ×2 (08:33→20:09)
[2023-02-26] MEDS: DOXYCYCLINE HYCLATE 100 MG CAP PO SCH ×2 (08:33→20:11)
[2023-02-26] MEDS: FEXOFENADINE HCL 180 MG TAB PO SCH (08:33)
[2023-02-26] MEDS: ATORVASTATIN 20 MG TAB PO SCH (08:33)
--- NOTE | 2023-02-26 09:23 | Hospitalist Progress Note ---
Date of Service February 26, 2023 Assessment & Plan (1) Sepsis: Plan: -Continue IVF. No clear source of infection. -Viral screen negative -Tick borne illness screen negative. Continue doxycycline pending follow up PCR -UA negative -s/p ceftriaxone 2gm in ER. Will continue ceftriaxone for empiric treatment pending blood culture. Now with rash. Will ask for ID consult (2) Thrombocytopenia: Plan: -Due to infection Plan DVT ppx SCDs for now Admission and Anticipated Discharge Date Admission Date: February 25, 2023 Subjective No longer having fevers. Feels well overnight Noted to have new red blotches on upper torso Review of Systems Review of Systems: as above Physical Exam Physical Exam: Pleasant, comfortable, no acute distress Respiratory: breathing comfortably, no wheezing/rhonchi/rales Cardiovascular: regular rate and rhythm, no murmurs/rubs/gallops Gastrointestinal (Abdomen): soft, non tender Musculoskeletal: no edema Skin: Several areas of small (1-2 cm) discrete circles of erythema. Neurologic: awake, alert, spontaneously moving extremities Results & Data Results & Data Vital Signs (Past 12 Hours) Vital Signs Temp Pulse Pulse Resp BP Pulse Ox O2 Del Method 02/26/23 08:24 36.7 C 72 18 127/87 94 Room Air 02/26/23 02:27 37.2 C 72 16 129/80 95 Room Air 02/25/23 22:57 36.9 C 70 16 122/83 96 Room Air 02/25/23 23:00 68
[2023-02-26] MEDS: cefTRIAXone SODIUM 2,000 MG in DEXTROSE 5% 50 ML IV SCH (20:18)
[2023-02-27] MEDS: LEVOTHYROXINE SODIUM 175 MCG TABLET PO SCH (05:32)
[2023-02-27 07:38] LABS: Albumin Level 3.5 gm/dl (3.4-5.0); BUN Creatinine Ratio 15.2 (10-20); Bilirubin Direct 0.1 mg/dl (0-0.2); Bilirubin,Total 0.4 mg/dl (0.2-1.0); Calcium 8.5 mg/dl (8.6-10.3); Creatinine Clr Calc Pharmacy 96.5 ml/min; Est GFR (African American) 87.7 ml/min; Est GFR (Non-African American) 75.7 ml/min; Total Protein 6.3 gm/dl (6.0-8.3)
[2023-02-27] MEDS: guaiFENesin 600 MG TABCR PO SCH (07:49)
[2023-02-27] MEDS: DOXYCYCLINE HYCLATE 100 MG CAP PO SCH (07:49)
[2023-02-27] MEDS: ATORVASTATIN 20 MG TAB PO SCH (07:49)
[2023-02-27] MEDS: CYANOCOBALAMIN (B-12) 500 MCG TABLET PO SCH (07:49)
[2023-02-27] MEDS: FEXOFENADINE HCL 180 MG TAB PO SCH (07:49)
[2023-02-27 07:55] LABS: Hematocrit (blood only) 39.6 % (42.0-52.0); Hemoglobin 13.7 g/dl (14.0-18.0); Mean Corpuscular Hemoglobin 30.9 pg (25.0-34.0); Mean Corpuscular Hgb Conc 34.6 g/dL (32.0-36.0); Mean Corpuscular Volume 89.2 fL (80.0-100.0); Mean Platelet Volume 11.1 fL (9.4-12.4); Platelet Count 81 K/uL (130-400); RDW Coefficient of Variation 13.4 % (11.5-14.5); RDW Standard Deviation 44.3 fL (36.4-46.3); Red Blood Count 4.44 M/uL (4.70-6.10); White Blood Count 6.93 K/ul (4.8-10.8)
[2023-02-27 08:15] LABS: Basophils # (auto) 0.06 K/uL (0-0.2); Basophils % (auto) 0.9 %; Eosinophils # (auto) 0.18 K/uL (0-0.50); Eosinophils % (auto) 2.6 %; Immature Granulocytes # (auto) 0.02 K/uL (0.01-0.20); Immature Granulocytes % (auto) 0.3 %; Lymphocytes % (auto) 50.5 %; Monocytes # (auto) 0.91 K/uL (0.11-0.59); Monocytes % (auto) 13.1 %; Neutrophils # (auto) 2.26 K/uL (1.40-6.50); Neutrophils % (auto) 32.6 %
--- NOTE | 2023-02-27 12:55 | Discharge Summary ---
Date of Service February 27, 2023 Admission HPI Per Admitting Provider History obtained from patient, family, and records. Medical history significant for hyperlipidemia, hypothyroidism, asthma/centrilobular emphysema, Hodgkin's lymphoma status post chemoradiation, GERD. Last night, patient noted dry cough symptoms associated with fever, chills, sweats, fever to touch as per . Dull headache symptoms. Not sure about recent tick bites. Ticks where patient lives. Patient has received COVID-19 vaccination. Patient denies chest pain, SOB, abdominal pain. Poor appetite. Patient brought to ER for evaluation. SBP 90s at one-point during ER stay. IV doxycycline administered at the ER. Medical History as above Surgical History : Appendectomy Family History : Heart disease, depression, cirrhosis, lymphoma Personal/Social history : Non-smoker, occasional EtOH intake, currently unemployed Principal Diagnosis Anaplasmosis infection Thrombocytopenia Sepsis, treated and resolved Discharge Exam Remains afebrile since 02/25/2023 Constitutional Pleasant and comfortable, no acute distress Respiratory Breathing comfortably on room air, no wheezing/rhonchi/rales Cardiovascular Regular rate and rhythm, no murmurs/rubs/gallops Gastrointestinal (Abdomen) soft, non tender, non distended Musculoskeletal no edema Skin flat circular rash on torso is unchanged from yesterday Neurologic awake, alert, spontaneously moving extremities Discharge Data Allergies Allergy/AdvReac Type Severity Reaction Status Date / Time No Known Allergies Allergy Unverified 02/24/23 23:30 Consultations 02/24/23 23:23 ED Decision to Admit Stat 02/26/23 09:19 Consult Infectious Diseases Routine Ordered Studies 02/24/23 23:06 CT head/brain wo con Stat Hospital Course (1) Thrombocytopenia: (2) Sepsis: (3) Acute hypotension: (4) Fever: (5) Malaise: (6) Anaplasmosis: Plan Mr Gilberto Licona is a 62 year old man with history significant for hyperlipidemia, hypothyroidism, asthma/centrilobular emphysema, Hodgkin's lymphoma status post chemoradiation, GERD presents to the ER on 02/25/2023 with complaint of fever, chills, myalgia for several days. On presentation he was febrile with Temp up to 39.4 and HR up to 104 consistent with sepsis. He had blood cultures collected and was then empirically started on ceftriaxone. Blood cultures have remained negative to date. His CBC was significant for thrombocytopenia with a platelet count as low as 72. He was started on doxycycline empirically for coverage of Tick born illness. He had a blood smear on 02/24 which was negative for inclusions but a follow up smear on 02/25 showed inclusions consistent with anaplasmosis. While on doxycycline, he did well and his fever defervesced. His platelet count improved to 81 at discharge. At the time of discharge, the following studies are pending Anaplasma PCR Babesia PCR HIV screen (this was recommended by ID for completeness of workup) After discharge, he will need to follow up with his PCP for results of above studies and to have a repeat CBC in 2-4 weeks to ensure normalization of thrombocytopenia. Total Time Total Time Spent Total Time Spent (In Minutes): 45 Discharge Plan Discharge Items Patient Disposition: Home - Self-Care Reason For Visit: TRANSIENT HYPOTENSION Discharge Diagnosis: Anaplasmosis infection Thrombocytopenia Sepsis, treated and resolved Condition on Discharge: Good Activity: Resume your previous activity Non-emergency contact: Primary Care Provider Call non-emergency contact if: you have any medication questions and you have a fever Follow-up/Referrals: Macario Hood MD [Primary Care Provider] - Diet: Regular Addtl Attending Provider Instructions: Your symptoms are most consistent with Anaplasmosis infection Your blood smear is also positive for Anaplasmosis inclusion. PCR (confirmatory) test is pending You will need a 14 day course of doxycycline Infectious disease doctor recommended an HIV screen for complete workup and this was sent on the day of discharge but results will not be available for several days--> Please follow up with Dr Hood for the result of your HIV screen You need a repeat CBC in 2-4 weeks. Please follow up with your PCP for pending studies and for repeat labwork Pending Studies at Discharge: Yes Studies:: HIV screen is pending Anaplasma PCR pending Babesia PCR pending Stand-Alone Forms: My [employer], Smoking Cessation Medications and DC Order Prescriptions: New doxycycline hyclate 100 mg Capsule 100 mg PO BID 12 Days Qty: 24 0RF Continued acetaminophen [Tylenol] 325 mg Tablet 650 mg PO QID PRN (Reason: Pain) atorvastatin 20 mg tablet 20 mg PO QAM cyanocobalamin (vitamin B-12) [Vitamin B-12] 1,000 mcg Tablet 1,000 mcg PO DAILY albuterol sulfate 90 mcg/actuation Hfa Aerosol Inhaler 2 puff INHALATION QID PRN (Reason: Shortness Of Breath Or Wheezing) ipratropium bromide 0.02 % Solution 0 mg INHALATION BID PRN (Reason: allergies) levothyroxine 175 mcg tablet 175 mcg PO DAILY fexofenadine 180 mg Tablet 180 mg PO DAILY Discharge Orders: Discharge Order (Routine); Ordered 02/27/23 Ordered By: Jade Marcelino/Myra Patient Handouts: Prediabetes, 5 Steps for Eating Healthier Admission Data Admit Date/Time: 02/25/23 16:06 Attending Provider: Jade Doe Admit Provider: Damon Wilson Primary Care Provider: Macario Hood Other Providers: Damon Wilson ; Grover Rivas ; Christo Michel ; Berny Diez I. ; Jasen Sams II ; Zuleima Saucedo ; Macario Harris ; Velasquez Valverde ; Lavern Urrutia
[2023-03-01 01:52] LABS: Babesia microti DNA Not Detected (Not Detected)
== END 2023-02-27 13:45 | disposition home or self-care (01) | DRG 872 ==
LOC: 2W 17:48 → ED 17:48 → 2W 02-25 01:06